=== PATIENT | male | born 1950 | race Asian ===

== ENCOUNTER 2020-06-26 19:11 | Emergency (ER) | payer SELFPAY ==
[~2020-06-26] VITALS: Ht 167.6 cm; Wt 70.5 kg
[2020-06-26] MEDS ORDERED: BACLOFEN 10 MG TABLET PO ONE (20:15)
[2020-06-26] MEDS ORDERED: IBUPROFEN 600 MG TABLET PO ONE (20:15)
[2020-06-26 23:08] VITALS: BP 147/98
== END 2020-06-26 22:45 | disposition home or self-care (01) ==
LOC: EMS 19:11
DX: S39.012A Strain of muscle, fascia and tendon of lower back, initial encounter (principal); V43.52XA Car driver injured in collision with other type car in traffic accident, initial encounter; Y93.89 Activity, other specified; Y92.488 Other paved roadways as the place of occurrence of the external cause; Y99.8 Other external cause status
CPT/HCPCS: 72040; 72070; 72100; 99284; Z7502; Z7610